=== PATIENT | female | born 1935 | race Caucasian/White ===

== ENCOUNTER 2017-08-20 15:21 | Emergency (ER) | payer OTHER ==
[~2017-08-20] VITALS: Ht 147.3 cm; Wt 48.1 kg
[~2017-08-20 15:21] MED LIST: ASPIRIN EC81 M1 PO; CIPRO500 M1 PO; FOLIC ACID1 M1 PO; HUMALOG KW100 UNIT/1 SC; LANTUS100 UNIT/1 SC; LOSARTAN-HCTZ1 EAC1 PO
[2017-08-20 16:42] LABS: ABSOLUTE BASOPHIL COUNT 0.3 /CUMM (0.0-0.2); ABSOLUTE EOSINOPHIL COUNT 0.1 /CUMM (0.0-0.7); ABSOLUTE GRANULOCYTE CT 8.5 /CUMM (1.4-6.5); ABSOLUTE LYMPH COUNT 3.4 /CUMM (1.2-3.4); ABSOLUTE MONOCYTE COUNT 1.3 /CUMM (0.10-0.60); BASOPHIL % 1.9 % (0.0-2.0); EOSINOPHIL % 0.8 % (0-5); GRANULOCYTE % 62.4 % (42.2-75.2); HEMATOCRIT 49.1 % (37-47); MEAN CORPUSCULAR HGB 28.3 PG (27.0-31.0); MEAN CORPUSCULAR HGB CONC 33.4 G/DL (33.0-37.0); MEAN CORPUSCULAR VOLUME 84.8 FL (81.0-99.0); MEAN PLATELET VOLUME 9.4 FL (7.4-10.4); PLATELET COUNT 333 /CUMM (130-400); RBC DISTRIBUTION WIDTH 13.5 % (11.5-14.5); RED BLOOD CELL CT 5.79 /CUMM (4.20-5.40); WHITE BLOOD CELL COUNT 13.7 /CUMM (4.8-10.8)
--- NOTE | 2017-08-20 18:05 | ED SKIN/ALLERGY COMPLAINT ---
History of Present Illness General Chief Complaint: Animal/Insect Bite Stated Complaint: TICK OR SPIDER BITE TO INNER LEFT THIGH Source: patient, family Exam Limitations: no limitations Vital Signs & Intake/Output Vital Signs & Intake/Output Vital Signs Date Time Temp Pulse Resp B/P B/P Pulse O2 O2 Flow FiO2 Mean Ox Delivery Rate 08/20 1612 98.3 75 16 127/74 97 Room Air Allergies Coded Allergies: codeine (Intermediate, VOMITING;GI UPSET;DIZZY 08/17/15) oxycodone (Intermediate, VOMITING;GI UPSET;DIZZY 08/17/15) Reconcile Medications Aspirin (Ecotrin*) 81 MG TABLET.DR 1 TAB PO DAILY HEART/BLOOD (Reported) Ciprofloxacin HCl (Cipro) 500 MG TABLET 1 TAB PO BID FEVER Folic Acid 1 MG TABLET 1 TAB PO DAILY SUPPLEMENT (Reported) Insulin Lispro (Humalog Kwikpen U-100) 100 UNIT/1 ML INSULN.PEN 6 UNITS SC QPM DIABETES (Reported) Insulin-Lantus (Lantus) 100 UNIT/1 ML VIAL 2 UNITS SC QPM DIABETES (Reported) Losartan/Hydrochlorothiazide (Losartan-Hctz 50-12.5 MG Tab) 1 EACH TABLET 1 TAB PO DAILY BP (Reported) Triage Note: PT STATSE SHE WAS BIT BY SOMETHING LEFT THIGH AND WENT TO WALK IN AND WAS TOLD THAT SHE HAD LYME DISEASE AND WAS GIVEN ABX BUT HAS NOT STARTED IT YET. PT STATES SHE WAS GIVEN DOXY BUT HAS NOT STARTED THEM YET. PT STATES SHE HAS DM AND DID NOT WANT TO START MEDS UNTIL SHE SPOKE WITH HER PCP. PT STATES THAT HER PCP IS CLOSED TODAY. Triage Nurses Notes Reviewed? yes Onset: Gradual Duration: day(s): Timing: recent history Severity: moderate Location: extremities HPI: 81-year-old female presents emergency department complaining of rash to the left thigh for the past couple of days. Patient went to an urgent care yesterday and was prescribed doxycycline for Lyme disease however she did not start this medication yet because she was worried about possible side effects. She states that they did not test her for Lyme at that time. Patient is wondering if she was bit by a tick or spider however she did not see an insect on her prior to onset of rash. Patient reporting red painful rash to left thigh. Patient also reporting itchy bumps on chest and arms. Patient denies fevers, chills, abdominal pain, vomiting. (Mikaela Chavez) Past History Travel History Traveled to [place] past 21 day No Medical History Any Pertinent Medical History? see below for history Cardiovascular: hypertension, CARDIAC CATH WITH STENTS HYPERTENSION Endocrine: IDDM History of MRSA: No History of VRE: No History of CDIFF: No Surgical History Surgical History: appendectomy, hysterectomy, SPLENECTOMY Psychosocial History Who do you live with Daughter What is your primary language Italian Tobacco Use: Never used ETOH Use: denies use Illicit Drug Use: denies illicit drug use Family History Hx Contributory? No (Mikaela Chavez) Review of Systems Review of Systems Constitutional: Reports: no symptoms. EENTM: Reports: no symptoms. Respiratory: Reports: no symptoms. Cardiovascular: Reports: no symptoms. GI: Reports: no symptoms. Genitourinary: Reports: no symptoms. Musculoskeletal: Reports: no symptoms. Skin: Reports: see HPI. Neurological/Psychological: Reports: no symptoms. Hematologic/Endocrine: Reports: no symptoms. Immunologic/Allergic: Reports: no symptoms. All Other Systems: Reviewed and Negative (Mikaela Chavez) Physical Exam Physical Exam General Appearance: well developed/nourished, no apparent distress, alert, awake Head: atraumatic, normal appearance Eyes: Bilateral: normal appearance. Ears, Nose, Throat: hearing grossly normal Neck: normal inspection, supple, full range of motion Respiratory: no respiratory distress Back: normal inspection, normal range of motion Extremities: 12x6cm area of erythema to medial left thigh, +warmth, +mild tenderness Neurologic/Psych: awake, alert, oriented x 3 Skin: see erythema as described above (Mikaela Chavez) Progress Differential Diagnosis: abscess/cellulitis, allergic reaction, contact dermatitis, drug reaction, erythema multiforme, lyme disease, shingles, urticaria Plan of Care: Orders Procedure Date/time Status LYME TITRE 08/20 1608 Active COMPREHENSIVE METABOLIC PANEL 08/20 1608 Complete CBC WITHOUT DIFFERENTIAL 08/20 1608 Complete Laboratory Tests 08/20/17 1616: Anion Gap 15, Estimated GFR 47 L, BUN/Creatinine Ratio 29.1 H, Glucose 239 H, Calcium 10.7 H, Total Bilirubin 0.6, AST 92 H, ALT 129 H, Alkaline Phosphatase 106, Total Protein 8.3 H, Albumin 4.3, Globulin 4.0, Albumin/ Globulin Ratio 1.1, CBC w Diff NO MAN DIFF REQ, RBC 5.79 H, MCV 84.8, MCH 28.3, MCHC 33.4, RDW 13.5, MPV 9.4, Gran % 62.4, Lymphocytes % 25.1, Monocytes % 9.8 H, Eosinophils % 0.8, Basophils % 1.9, Absolute Granulocytes 8.5 H, Absolute Lymphocytes 3.4, Absolute Monocytes 1.3 H, Absolute Eosinophils 0.1, Absolute Basophils 0.3, Lyme Disease Antibody Pending Patient's rash is consistent with cellulitis however there is no erythema migrans to indicate definite Lyme disease at this time. The patient did not see a tick prior to onset of cellulitis. Lyme titer is pending. Patient's labs show mild leukocytosis and mild diminished kidney function. Patient appears well, nontoxic appearing, afebrile, vital signs are stable. Patient to take 2 doses of doxycycline tonight and follow up here or with her primary care doctor in 2 days for re-evaluation of her cellulitis. She was given strict return precautions which she understands. The patient was seen and evaluated by Dr. Mckeon who agrees with this plan. (Zena OLMOS,Mikaela Ladd) Departure Departure Disposition: HOME OR SELF CARE Condition: Stable Clinical Impression Primary Impression: Cellulitis Qualifiers: Site of cellulitis: extremity Site of cellulitis of extremity: lower extremity Laterality: left Qualified Code: L03.116 - Cellulitis of left lower limb Referrals: Santi ZAPATA,Franklyn Morelos (PCP/Family) Additional Instructions: Take 2 doses of doxycycline tonight as directed. Tomorrow begin one tablet in the morning and one tablet at night. Follow-up with your primary care doctor or return here in 2 days for "check up" on your skin infection. We will call you if the results of your Lyme test are abnormal. Return sooner if he had any worsening symptoms or concerns. Please note that there might be incidental findings in your evaluation that are unrelated to the current emergency department visit. Please notify your primary care doctor about this emergency department visit in order to obtain and review all of the testing performed so that these incidental findings can be monitored as needed. If you had an x-ray performed, please understand that some fractures may not be seen on the initial set of x-rays. If your symptoms persist you might need a repeat set of x-rays to check for such a fracture. If you had a laceration evaluated, please understand that foreign bodies such as glass or wood may not be visible to the naked eye or on plain x-rays. If the wound becomes red, swollen, increasingly more painful or if there is any drainage from the wound, please have it reevaluated by a physician for the possibility of a retained foreign body. If you're unable to follow up as outlined in the discharge instructions please return to the emergency department. Thank you for choosing the [facility] Emergency Department for your care. It was a pleasure to serve you today. Departure Forms: Customer Survey General Discharge Information (Zena OLMOS,Mikaela Ladd) PA/TRAINING INSTRUCTOR Co-Sign Statement Statement: ED Attending supervision documentation- [X] I saw and evaluated the patient. I have also reviewed all the pertinent lab results and diagnostic results. I agree with the findings and the plan of care as documented in the PA's/TRAINING INSTRUCTOR's documentation. Patient presents for evaluation of a left thigh a rash. Physical examination reveals an area of blanching erythema without central clearing of the left thigh. [] I have reviewed the ED Record and agree with the PA's/TRAINING INSTRUCTOR's documentation. [] Additions or exceptions (if any) to the PAs/TRAINING INSTRUCTOR's note and plan are summarized below: [] (Linda ZAPATA,Rudi Lala)
[2017-08-20 18:11] VITALS: BP 122/70
== END 2017-08-20 18:11 ==
LOC: ERH 15:21
PROVIDERS: Physician Assistant
DX: L03.116 Cellulitis of left lower limb (principal)
CPT/HCPCS: 86618